=== PATIENT | male | born 1965 | race Caucasian/White ===

== ENCOUNTER 2018-12-04 16:16 | Emergency (ER) | payer MEDICARE, MEDICAID ==
--- NOTE | 2018-12-04 17:01 | UC ---
General HPI - HPI Summary HPI Summary: Patient is 52 year old gentleman , who present today to the urgent care with diarrhea for past 4 days. he denies any sick contact or exposure. He went with his brother for dinner when his symptoms started but his brother is completely asymptomatic. he reports watery diarrhea without any blood or mucus, which is constant and he is having difficult time holding anything down. He reports that the moment he drinks even a glass of water he is to go use the restroom. He had a sinus infection for which she was treated with Z-Gael 3 weeks ago. there is associated nausea and has thrown up a few times , no blood. Denies any abdominal pain Denies any fever, chills, cough chest pain or shortness of breath . he still has some sinus symptoms for which she's been using Mucinex. - History of Current Complaint Chief Complaint: UCGI Stated Complaint: DIARRHEA Time Seen by Provider: 12/04/18 16:55 Hx Obtained From: Patient Pain Intensity: 0 - Allergy/Home Medications Allergies/Adverse Reactions: Allergies Allergy/AdvReac Type Severity Reaction Status Date / Time No Known Allergies Allergy Verified 12/04/18 16:50 Home Medications: Home Medications FLUoxetine CAP* [PROzac CAP*] 40 mg PO BID 12/04/18 [History Confirmed 12/04/18] Prazosin CAP* [Minipress CAP*] 1 mg PO BID 12/04/18 [History Confirmed 12/04/18] clonazePAM [Clonazepam] 2 mg PO TID 12/04/18 [History Confirmed 12/04/18] lamoTRIgine [Lamotrigine] 200 mg PO 12/04/18 [History] traZODone TAB* [Desyrel TAB*] 100 mg 12/04/18 [History] PMH/Surg Hx/FS Hx/Imm Hx - Additional Past Medical History Additional PMH: PTSD Previously Healthy: Yes - Surgical History Surgical History: Yes Surgery Procedure, Year, and Place: CHOLECYSTECTOMY - Social History Alcohol Use: None Substance Use Type: Marijuana Substance Use Comment - Amount & Last Used: daily Smoking Status (MU): Former Smoker Type: Cigarettes Amount Used/How Often: 1/2 ppd or more Length of Time of Smoking/Using Tobacco: 20 years Have You Smoked in the Last Year: Yes When Did the Patient Quit Smoking/Using Tobacco: 11/28/18 Review of Systems All Other Systems Reviewed And Are Negative: Yes Constitutional: Positive: Fatigue Skin: Positive: Negative Eyes: Positive: Negative ENT: Positive: Sinus Congestion Respiratory: Positive: Negative Cardiovascular: Positive: Negative Gastrointestinal: Positive: Vomiting - nonbloody nonbilious, Diarrhea - no blood or mucus, watery, Nausea Genitourinary: Positive: Negative Motor: Positive: Negative Neurovascular: Positive: Negative Musculoskeletal: Positive: Negative Neurological: Positive: Negative Psychological: Positive: Negative Is Patient Immunocompromised?: No Physical Exam - Summary Physical Exam Summary: Physical Exam: Const: Appears well. No signs of apparent distress present. Alert and oriented x 3. Musculo: Walks with a normal gait. Head/Face: Atraumatic, normocephalic on inspection. Eyes: EOMI and PERRLA in both eyes. Conjunctivae clear. mild jaundice is noted. ENT: Hearing normal Respiratory: Respirations are unlabored. Lungs clear to auscultation bilaterally, no wheezing , rhonchi or rales noted . CVS: Regular rate and Rhythm, S1S2 normal , no murmurs identified. Extremities: Peripheral circulation is grossly normal. Pulses 2+ Abdomen : Soft non tender , nondistended , Bowel sounds hyperkinetic, no guarding or rigidity noted Skin: No lesions or rash located on the upper extremities or on the lower extremities. Neuro: Cranial nerves II to XII intact, motor and sensory intact. DTR Intact bilaterally. Mood is normal. Affect is normal. Triage Information Reviewed: Yes Vital Signs: Initial Vital Signs Temp 96.8 F 12/04/18 16:43 Pulse 92 12/04/18 16:43 Resp 18 12/04/18 16:43 BP 150/98 12/04/18 16:43 Pulse Ox 98 12/04/18 16:43 Vital Signs Reviewed: Yes Course/Dx - Course Course Of Treatment: During the visit today, he was given 1 dose of 4 mg IV Zofran and 2 L normal saline IV fluids. he was feeling much better.. We obtained blood work for CBC and CMP as he appeared to have some jaundice. Advised him that somebody will call him with the results tomorrow . I will prescribe the Zofran to the pharmacy . stool kit was given to him today which she will bring back once the samples available.. He will follow up with his primary care doctor, nurse practitioner at [facility] Patient expressed understanding . - Diagnoses Provider Diagnosis: Diarrhea Discharge - Sign-Out/Discharge Documenting (check all that apply): Patient Departure All imaging exams completed and their final reports reviewed: No Studies - Discharge Plan Condition: Stable Disposition: HOME Prescriptions: Ondansetron ODT TAB* [Zofran 4 MG Odt TAB*] 4 mg PO Q6H PRN 7 Days #30 tab.odt PRN Reason: Nausea Patient Education Materials: Acute Diarrhea (ED) Referrals: No Primary Care Phys,NOPCP [Primary Care Provider] - 2 Days Additional Instructions: Please start taking the medication as prescribed to the pharmacy . We obtained blood work for CBC and CMP(Liver function test). Advised him that somebody will call him with the results tomorrow . Stool kit was given to him today which she will bring back once the samples available. keep yourself hydrated He will follow up with his primary care doctor, nurse practitioner at [facility] within 2 days. Patients blood pressure slightly high in Urgent care today , plan follow up with PCP for better control within 1 month Return to Urgent care / ER if symptoms get worse. - Billing Disposition and Condition Condition: STABLE Disposition: Home
[2018-12-04] MEDS ORDERED: NS 0.9% 1000 ML** 1,000 ML IV ONE ×2 (17:15→18:37)
[2018-12-04] MEDS ORDERED: Ondansetron INJ* 2 MG/ML VIAL IV ONE (17:15)
[2018-12-04] MEDS ORDERED: Ondansetron ODT TAB* 4 MG PO ONE (19:11)
[2018-12-04 19:35] VITALS: BP 127/80
[2018-12-05 11:49] LABS: ABS Basophils 0 10^3/ul (0-0.2); ABS Eosinophils 0 10^3/ul (0-0.6); ABS Lymphocytes 1.7 10^3/ul (1.0-4.8); ABS Monocytes 0.9 10^3/ul (0-0.8); ABS Neutrophils 2.5 10^3/ul (1.5-7.7); ABS Nucleated RBC 0 10^3/ul; Eosinophil % 0.1 %; Hematocrit 52 % (36-46); Hemoglobin 17.4 g/dL (14.0-18.0); Lymphocyte % 32.6 %; Mean Corpuscular HGB Conc 34 g/dL (31-36); Mean Corpuscular Hemoglobin 31 pg (27-31); Mean Corpuscular Volume 92 fL (80-94); Mean Platelet Volume 9.1 fL (7.4-10.4); Nucleated Red Blood Cells % 0.3; Platelet Count 194 10^3/uL (150-450); Red Blood Count 5.62 10^6 /uL (4.18-5.48); Red Cell Distribution Width 13 % (10.5-15); White Blood Count 5.1 10^3/uL (3.5-10.8)
[2018-12-05 11:56] LABS: Albumin 4.5 g/dL (3.2-5.2); Calcium 9.4 mg/dL (8.6-10.3); Potassium 4.2 mmol/L (3.5-5.0); Total Bilirubin 0.7 mg/dL (0.2-1.0)
[2018-12-05 12:01] LABS: Albumin/Globulin Ratio 1.3 (1-3); EGFR African American 77.2 (>60); EGFR Non-African American 63.8 (>60); Globulin 3.5 g/dL (2-4)
== END 2018-12-04 19:45 | disposition home or self-care (01) ==
LOC: UCEAST 16:16
DX: R19.7 Diarrhea, unspecified (principal); Z87.891 Personal history of nicotine dependence; R11.0 Nausea
CPT/HCPCS: 36415; 80053; 85025; 99212; A9270-GY; G0463; J2405